=== PATIENT | male | born 1950 | race African-American/Black ===

== ENCOUNTER → 2016-06-09 | Outpatient (CLI) | payer MEDICARE ==
[~2016-06-09] MED LIST: AMBIEN 10MG10 MG PO; AMBIEN 5MG TABLE5 MG PO; AMBIEN10 MG PO; AMBIEN5 MG PO; BENADRYL25 M2 PO; BLOOD PRESSURE MED; CARDIZEM 30MG T30 MG PO; CARDIZEM SR 60M60 MG PO; CARTIA XT120 MG PO; CARTIA XT180 MG PO; CIPRO 500MG TA500 MG PO; COLACE 100100 MG/CAP PO; CRESTOR; CRESTOR 10MG10 MG; CRESTOR 10MG10 MG PO; DECADRON 4MG TAB4 MG PO; DEPRESSION MED; DILTIAZEM30 MG PO; DILTIAZEM60 MG PO; EPITOL100 MG PO; FLAGYL500 MG PO; FLEXERIL 1010 MG/TAB PO; FLOMAX 0.40.4 MG/CAP PO; FOCALIN10 MG PO; GUANFACINE2 MG PO; HEALTH CARE AM PO; LORTAB 5/500 501 TAB PO; MACROBID 1100 MG/CAP PO; MED FOR ADD; METRONIDAZOLE500 MG PO; MUCINEX 60600 MG/TA1 PO; NAPROSYN500 MG PO; NORCO 325 MG-51 TAB PO; PAMELOR50 MG PO; PEN-V500 MG PO; PEPCID20 MG PO; PERCOCET 325 MG1 TA2 PO; PERCOCET 5/321 UDTAB PO; PERCOCET 500 MG1 TAB PO; PERCR 7.5 PO; PHENERGAN 25 TA25 MG PO; PHENERGAN25 MG RC; PRIL40 PO; PROTONIX 40MG T40 MG PO; PROZAC40 MG PO; RITALIN 20M20 MG/TAB PO; RITALIN LA20 MG PO; TENEX; TENEX PO; TENEX2 MG PO; TOPAMAX 100MG100 MG PO; TYLENOL W/COD1 UDTAB PO; VIT B COMPLEX; WELLBUTRIN PO; ZOFRAN 4MG T4 MG/TAB PO; ZOFRAN ODT4 MG PO; ZYPREXA 5MG5 MG PO; [UNRECOGNIZED DRUG - OTHER]; [UNRECOGNIZED DRUG - REMARK]; blood pressure
== END ==
LOC: BHSO 15:05
DX: F06.32 Mood disorder due to known physiological condition with major depressive-like episode (principal)

== ENCOUNTER → 2017-01-25 | Outpatient (CLI) | payer MEDICARE | LOC: BHSO 15:42 | DX: F06.32 Mood disorder due to known physiological condition with major depressive-like episode (principal) | CPT/HCPCS: G0463 ==

== ENCOUNTER → 2017-10-13 | Outpatient (CLI) | payer MEDICARE | LOC: BHSO 09:50 | DX: F33.42 Major depressive disorder, recurrent, in full remission (principal) | CPT/HCPCS: G0463 ==

== ENCOUNTER → 2018-11-30 | Outpatient (CLI) | payer MEDICARE | LOC: BHSO 10:08 | DX: F33.41 Major depressive disorder, recurrent, in partial remission (principal) | CPT/HCPCS: G0463 ==

== ENCOUNTER → 2019-02-22 | Outpatient (CLI) | payer MEDICARE | LOC: BHSO 14:45 | DX: F41.1 Generalized anxiety disorder (principal) | CPT/HCPCS: G0463 ==

== ENCOUNTER → 2019-10-08 | Outpatient (CLI) | payer MEDICARE | LOC: BHSO 16:13 | DX: F41.1 Generalized anxiety disorder (principal) | CPT/HCPCS: G0463 ==